=== PATIENT | female | born 1965 | race Hispanic/Latino ===

== ENCOUNTER 2019-03-06 09:17 | Day surgery (SDC) | payer MEDICAID ==
[~2019-03-06] VITALS: Ht 149.9 cm; Wt 62.6 kg
[~2019-03-06 09:17] MED LIST: SODIUM CHLORIDE 0.9% 1000ML 1,000 ML IV ONE
[2019-03-06 12:06] VITALS: BP 135/59
[2019-03-06] MEDS ORDERED: SIMV20TA6 PO (12:27)
[2019-03-06] MEDS ORDERED: PANT20TA12 PO (12:27)
[2019-03-06] MEDS ORDERED: TYL3 PO (12:27)
[2019-03-06] MEDS ORDERED: PHENAZOPYRIDINE (12:27)
[2019-03-06] MEDS ORDERED: FLUO-125 PO (12:27)
[2019-03-06] MEDS ORDERED: AMLO5TAB9 PO (12:27)
[2019-03-06] MEDS ORDERED: SULF1TAB3 PO (12:27)
[2019-03-06] MEDS ORDERED: BENA40TA9 PO (12:27)
[2019-03-06] MEDS ORDERED: AMIT75TA2 PO (12:27)
[2019-03-06] MEDS ORDERED: IBUP-2077 PO (12:27)
[2019-03-06 13:00] VITALS: BP 77/25
[2019-03-06 13:04] VITALS: BP 89/37
[2019-03-06 13:10] VITALS: BP 114/61
[2019-03-06 13:14] VITALS: BP 130/73
== END 2019-03-06 13:21 | disposition home or self-care (01) ==
LOC: DAH 09:17 → ENDO 09:17
PROVIDERS: ATTEND Internal Medicine Gastroenterology
DX: K63.5 Polyp of colon (principal); K57.30 Diverticulosis of large intestine without perforation or abscess without bleeding; D72.820 Lymphocytosis (symptomatic); K29.50 Unspecified chronic gastritis without bleeding; B96.81 Helicobacter pylori [H. pylori] as the cause of diseases classified elsewhere; K64.0 First degree hemorrhoids; K25.4 Chronic or unspecified gastric ulcer with hemorrhage; K26.9 Duodenal ulcer, unspecified as acute or chronic, without hemorrhage or perforation; K29.80 Duodenitis without bleeding; K22.8 Other specified diseases of esophagus; K31.89 Other diseases of stomach and duodenum; I10 Essential (primary) hypertension; F41.9 Anxiety disorder, unspecified; D64.9 Anemia, unspecified; K76.0 Fatty (change of) liver, not elsewhere classified; E78.2 Mixed hyperlipidemia; F17.200 Nicotine dependence, unspecified, uncomplicated; Z86.73 Personal history of transient ischemic attack (TIA), and cerebral infarction without residual deficits; Z79.899 Other long term (current) drug therapy; Z90.49 Acquired absence of other specified parts of digestive tract; Z90.710 Acquired absence of both cervix and uterus
CPT/HCPCS: 43239; 45385; 88305; A4606; J7030